=== PATIENT | female | born 1935 | race Caucasian/White ===

== ENCOUNTER → 2017-12-04 | Outpatient (CLI) | payer MEDICARE | END | disposition home or self-care (01) | LOC: SHCH 15:10 | PROVIDERS: ATTEND Internal Medicine Cardiovascular Disease | DX: I08.2 Rheumatic disorders of both aortic and tricuspid valves (principal); I27.20 Pulmonary hypertension, unspecified | CPT/HCPCS: 93306 ==

== ENCOUNTER → 2019-03-14 | Outpatient (CLI) | payer MEDICARE | END | disposition home or self-care (01) | LOC: OIH 08:55 | PROVIDERS: ATTEND Nurse Practitioner Adult Health | DX: J98.11 Atelectasis (principal); I51.7 Cardiomegaly; I70.0 Atherosclerosis of aorta; M47.814 Spondylosis without myelopathy or radiculopathy, thoracic region; M40.294 Other kyphosis, thoracic region | CPT/HCPCS: 71046 ==

== ENCOUNTER → 2019-07-24 | Outpatient (CLI) | payer MEDICARE | END | disposition home or self-care (01) | LOC: SHCH 12:29 | PROVIDERS: ATTEND Internal Medicine Cardiovascular Disease | DX: I08.8 Other rheumatic multiple valve diseases (principal); I27.20 Pulmonary hypertension, unspecified; Z98.890 Other specified postprocedural states | CPT/HCPCS: 93306 ==

== ENCOUNTER → 2020-02-25 | Outpatient (CLI) | payer MEDICARE | END | disposition home or self-care (01) | LOC: RAH 15:20 | PROVIDERS: ATTEND Nurse Practitioner Adult Health | DX: E83.52 Hypercalcemia (principal); N28.1 Cyst of kidney, acquired | CPT/HCPCS: 76536 ==

== ENCOUNTER → 2021-12-14 | Outpatient (CLI) | payer MEDICARE | END | disposition home or self-care (01) | LOC: SHCH 10:05 | PROVIDERS: ATTEND Internal Medicine Cardiovascular Disease | DX: I08.3 Combined rheumatic disorders of mitral, aortic and tricuspid valves (principal); Z95.2 Presence of prosthetic heart valve; I27.20 Pulmonary hypertension, unspecified | CPT/HCPCS: 93306 ==

== ENCOUNTER → 2022-09-19 | Outpatient (CLI) | payer MEDICARE | END | disposition home or self-care (01) | LOC: LAB 13:12 | PROVIDERS: ATTEND Internal Medicine Cardiovascular Disease | DX: I51.7 Cardiomegaly (principal) | CPT/HCPCS: 36415; 83880 ==

== ENCOUNTER → 2022-09-30 | Outpatient (CLI) | payer MEDICARE ==
[2022-09-30 12:43] LABS: CREATININE 1.4 mg/dL (0.5-1.5); POTASSIUM 3.4 mmol/L (3.5-5.1)
== END | disposition home or self-care (01) ==
LOC: LAB 08:06
PROVIDERS: ATTEND Internal Medicine Cardiovascular Disease
DX: R07.9 Chest pain, unspecified (principal)
CPT/HCPCS: 36415; 80048

== ENCOUNTER → 2022-10-03 | Outpatient (CLI) | payer MEDICARE ==
[2022-10-03 12:35] LABS: ALBUMIN 3.8 g/dL (3.5-5.0); BILIRUBIN,TOTAL 0.9 mg/dL (0.2-1.0); CREATININE 1.3 mg/dL (0.5-1.5); POTASSIUM 3.3 mmol/L (3.5-5.1); TOTAL PROTEIN, SERUM 7.4 g/dL (6.0-8.3)
== END | disposition home or self-care (01) ==
LOC: LAB 08:35
PROVIDERS: ATTEND Internal Medicine Cardiovascular Disease
DX: R07.9 Chest pain, unspecified (principal)
CPT/HCPCS: 36415; 80053

== ENCOUNTER → 2022-10-12 | Outpatient (CLI) | payer MEDICARE ==
[2022-10-12 12:06] LABS: CREATININE 1.1 mg/dL (0.5-1.5); POTASSIUM 3.4 mmol/L (3.5-5.1)
== END | disposition home or self-care (01) ==
LOC: LAB 08:26
PROVIDERS: ATTEND Internal Medicine Cardiovascular Disease
DX: I10 Essential (primary) hypertension (principal)
CPT/HCPCS: 36415; 80048

== ENCOUNTER → 2022-10-24 | Outpatient (CLI) | payer MEDICARE ==
[2022-10-24 12:17] LABS: CREATININE 1.2 mg/dL (0.5-1.5)
== END | disposition home or self-care (01) ==
LOC: LAB 08:24
PROVIDERS: ATTEND Internal Medicine Cardiovascular Disease
DX: I10 Essential (primary) hypertension (principal)
CPT/HCPCS: 36415; 80048

== ENCOUNTER 2022-12-27 22:42 | Inpatient (IN) | payer MEDICARE ==
[~2022-12-27] VITALS: Ht 157.5 cm; Wt 61.7 kg
[2022-12-27 23:40] VITALS: BP 125/44; PULSE 59; RESP 20; O2SAT 95
[2022-12-28] VITALS (7 sets, daily range): BP systolic 110–140; BP diastolic 39–58; PULSE 60–67; RESP 18–20; O2SAT 95–96
[2022-12-28] MEDS ORDERED: ACETAMINOPHEN 325 MG TAB PO PRN (01:00)
[2022-12-28] MEDS ORDERED: MORPHINE 2 MG SYG IV PRN (01:00)
[2022-12-28] MEDS ORDERED: ONDANSETRON 4MG INJ IV PRN (01:00)
[2022-12-28] MEDS: 0.9%NACL 1000ML 1,000 ML IV SCH (02:00)
[2022-12-28] MEDS: ACETAMINOPHEN 325 MG TAB PO PRN ×3 (02:09→20:39)
[2022-12-28] MEDS ORDERED: ASPI-1005 PO (03:10)
[2022-12-28] MEDS ORDERED: SPIR25TA6 PO (03:10)
[2022-12-28] MEDS ORDERED: LOSA100T59 PO (03:10)
[2022-12-28] MEDS ORDERED: LEVO88CA4 PO (03:10)
[2022-12-28] MEDS ORDERED: DIGO-44 PO (03:10)
[2022-12-28] MEDS ORDERED: WARF2.5T85 PO (03:10)
[2022-12-28] MEDS ORDERED: PRAV40TA3 PO (03:10)
[2022-12-28] MEDS ORDERED: CARV25TA77 PO (03:10)
[2022-12-28] MEDS ORDERED: METO5TAB7 PO (03:10)
[2022-12-28] MEDS ORDERED: ESTR0.5T2 PO (03:10)
[2022-12-28] MEDS ORDERED: FURO-151 PO (03:10)
[2022-12-28] MEDS ORDERED: ESZO1TAB10 PO (03:10)
[2022-12-28] MEDS ORDERED: CHOL200012 PO (03:10)
[2022-12-28 05:48] LABS: BASOPHILS # (AUTO) 0.05 K/uL (0.00-0.20); BASOPHILS % (AUTO) 0.6 % (0.0-5.0); EOSINOPHILS # (AUTO) 0.11 K/uL (0.00-0.70); EOSINOPHILS % (AUTO) 1.4 % (0.0-8.0); IMMATURE GRANULOCYTE ABSOLUTE 0.16 K/uL (0-1); LYMPHOCYTES % (AUTO) 12.7 % (21.0-51.0); MEAN CORPUSCULAR HEMOGLOBIN 30.9 pg (27.0-33.0); MEAN CORPUSCULAR VOLUME 90.9 fL (79-99); MONOCYTES # (AUTO) 1.2 K/uL (0.1-1.0); MONOCYTES % (AUTO) 15.5 % (3.0-13.0); NEUTROPHILS # (AUTO) 5.3 K/uL (1.8-7.7); NEUTROPHILS % (AUTO) 67.8 % (40.0-77.0); PLATELET COUNT (AUTO) 205 K/uL (130-400); RED CELL DISTRIBUTION WIDTH 16.1 % (11.0-15.5); WHITE BLOOD COUNT (AUTO) 7.9 K/uL (4.8-10.8)
[2022-12-28 06:13] LABS: BILIRUBIN,TOTAL 0.7 mg/dL (0.2-1.0); CREATININE 1.2 mg/dL (0.5-1.5); POTASSIUM 3.8 mmol/L (3.5-5.1); TOTAL PROTEIN, SERUM 5.6 g/dL (6.0-8.3)
[2022-12-28 06:18] LABS: B-TYPE NATRIURETIC PEPTIDE 76 pg/mL (0-100)
[2022-12-28] MEDS ORDERED: METOLAZONE 5 MG PO SCH (06:30)
[2022-12-28] MEDS: LEVOTHYROXINE 88 MCG TABLET PO SCH (06:34)
[2022-12-28] MEDS: FAMOTIDINE 20MG TAB PO SCH ×2 (08:17→20:37)
[2022-12-28] MEDS: DIGOXIN 125 MCG TABLET PO SCH ×2 (08:19→10:25)
[2022-12-28 08:42] LABS: INR 1.91 (0.85-1.15); PROTHROMBIN TIME 21.2 SEC (9.6-11.6)
[2022-12-28] MEDS: ESTRADIOL 0.5 MG TABLET PO SCH ×2 (09:00→09:14)
[2022-12-28] MEDS: SPIRONOLACTONE 25 MG TAB PO SCH ×2 (09:00→09:13)
[2022-12-28] MEDS ORDERED: CARVEDILOL 25 MG TABLET PO SCH (09:00)
[2022-12-28] MEDS ORDERED: NON-FORMULARY MEDICATION 1 EACH (Pravastatin Sodium 40 MG) PO SCH (09:00)
[2022-12-28] MEDS: CHOLECALCIFEROL 50 MCG PO SCH (09:00)
[2022-12-28] MEDS ORDERED: FUROSEMIDE 40 MG TABLET PO SCH (09:00)
[2022-12-28] MEDS ORDERED: METOLAZONE 2.5 MG TABLET PO SCH (09:00)
[2022-12-28] MEDS ORDERED: LOSARTAN 100 MG TABLET PO SCH (09:00)
[2022-12-28] MEDS: LOSARTAN 50 MG TABLET PO SCH (09:14)
[2022-12-28] MEDS: TORSEMIDE 20 MG TAB PO SCH ×2 (09:14→20:38)
[2022-12-28] MEDS: CARVEDILOL 12.5 MG TABLET PO SCH ×2 (09:14→20:38)
[2022-12-28] MEDS: ATORVASTATIN 10 MG TABLET PO SCH (20:37)
[2022-12-28] MEDS ORDERED: ESZOPICLONE 1 MG PO PRN (21:00)
[2022-12-29] VITALS (8 sets, daily range): BP systolic 124–137; BP diastolic 48–68; PULSE 60–70; RESP 16–20; O2SAT 96
[2022-12-29] MEDS: 0.9%NACL 1000ML 1,000 ML IV SCH (00:09)
[2022-12-29 04:45] LABS: HEMATOCRIT 22.2 % (36-48); MEAN CORPUSCULAR HEMOGLOBIN 30.1 pg (27.0-33.0); MEAN CORPUSCULAR HGB CONC 33.3 g/dL (32.0-36.0); MEAN CORPUSCULAR VOLUME 90.2 fL (79-99); RED BLOOD CELL COUNT(AUTO) 2.46 MIL/uL (4.00-5.50); RED CELL DISTRIBUTION WIDTH 17.2 % (11.0-15.5); WHITE BLOOD COUNT (AUTO) 7.4 K/uL (4.8-10.8)
[2022-12-29 04:59] LABS: INR 1.64 (0.85-1.15); PROTHROMBIN TIME 18.4 SEC (9.6-11.6)
[2022-12-29 05:15] LABS: ALBUMIN 2.9 g/dL (3.5-5.0); BILIRUBIN,TOTAL 0.8 mg/dL (0.2-1.0); CREATININE 1.1 mg/dL (0.5-1.5); POTASSIUM 3.7 mmol/L (3.5-5.1); TOTAL PROTEIN, SERUM 5.7 g/dL (6.0-8.3)
[2022-12-29] MEDS: LEVOTHYROXINE 88 MCG TABLET PO SCH (06:08)
[2022-12-29] MEDS: CHOLECALCIFEROL 50 MCG PO SCH (09:00)
[2022-12-29] MEDS: LOSARTAN 50 MG TABLET PO SCH (10:05)
[2022-12-29] MEDS: DIGOXIN 125 MCG TABLET PO SCH (10:05)
[2022-12-29] MEDS: FAMOTIDINE 20MG TAB PO SCH ×2 (10:05→19:49)
[2022-12-29] MEDS: TORSEMIDE 20 MG TAB PO SCH ×2 (10:06→19:49)
[2022-12-29] MEDS: CARVEDILOL 12.5 MG TABLET PO SCH ×2 (10:06→19:49)
[2022-12-29 14:18] LABS: HEMATOCRIT 22.7 % (36-48); MEAN CORPUSCULAR HEMOGLOBIN 30.5 pg (27.0-33.0); MEAN CORPUSCULAR VOLUME 92.3 fL (79-99); NUCLEATED RED BLOOD CELLS 0.3 % (0.0-0.19); RED BLOOD CELL COUNT(AUTO) 2.46 MIL/uL (4.00-5.50); RED CELL DISTRIBUTION WIDTH 17.2 % (11.0-15.5); WHITE BLOOD COUNT (AUTO) 7.9 K/uL (4.8-10.8)
[2022-12-29] MEDS: ACETAMINOPHEN 325 MG TAB PO PRN ×2 (14:33→19:48)
[2022-12-29] MEDS: ATORVASTATIN 10 MG TABLET PO SCH (19:48)
[2022-12-29] MEDS: APIXABAN 2.5 MG TABLET PO SCH (19:49)
[2022-12-30] VITALS (8 sets, daily range): BP systolic 130–143; BP diastolic 48–68; PULSE 60–64; RESP 18–20; O2SAT 94–97
[2022-12-30] MEDS: LEVOTHYROXINE 88 MCG TABLET PO SCH (04:44)
[2022-12-30] MEDS: ACETAMINOPHEN 325 MG TAB PO PRN ×2 (04:45→20:26)
[2022-12-30 05:09] LABS: MEAN CORPUSCULAR HEMOGLOBIN 29.7 pg (27.0-33.0); MEAN CORPUSCULAR HGB CONC 31.7 g/dL (32.0-36.0); MEAN CORPUSCULAR VOLUME 93.5 fL (79-99); NUCLEATED RED BLOOD CELLS 0.5 % (0.0-0.19); RED BLOOD CELL COUNT(AUTO) 2.46 MIL/uL (4.00-5.50); RED CELL DISTRIBUTION WIDTH 17.4 % (11.0-15.5); WHITE BLOOD COUNT (AUTO) 8.1 K/uL (4.8-10.8)
[2022-12-30 05:25] LABS: INR 1.35 (0.85-1.15); PROTHROMBIN TIME 15.4 SEC (9.6-11.6)
[2022-12-30 05:46] LABS: ALBUMIN 3.1 g/dL (3.5-5.0); BILIRUBIN,TOTAL 1.2 mg/dL (0.2-1.0); CREATININE 1.3 mg/dL (0.5-1.5); MAGNESIUM 2.1 mg/dL (1.80-2.40); TOTAL PROTEIN, SERUM 6.4 g/dL (6.0-8.3)
[2022-12-30] MEDS: APIXABAN 2.5 MG TABLET PO SCH (08:34)
[2022-12-30] MEDS: ESTRADIOL 0.5 MG TABLET PO SCH (08:34)
[2022-12-30] MEDS: TORSEMIDE 20 MG TAB PO SCH ×2 (08:34→20:27)
[2022-12-30] MEDS: SPIRONOLACTONE 25 MG TAB PO SCH (08:34)
[2022-12-30] MEDS: FAMOTIDINE 20MG TAB PO SCH ×2 (08:34→20:27)
[2022-12-30] MEDS: DIGOXIN 125 MCG TABLET PO SCH (08:35)
[2022-12-30] MEDS: LOSARTAN 50 MG TABLET PO SCH (08:35)
[2022-12-30] MEDS: CARVEDILOL 12.5 MG TABLET PO SCH ×2 (08:36→20:28)
[2022-12-30] MEDS: CHOLECALCIFEROL 50 MCG PO SCH (08:37)
[2022-12-30] MEDS ORDERED: LACTULOSE 20 GM/30 ML UDCUP PO PRN (09:00)
[2022-12-30] MEDS: BALSAM PERU/CASTOR OIL 60 GM TUBE TP SCH ×2 (09:00→21:00)
[2022-12-30] MEDS ORDERED: BISACODYL 5 MG TABLET.DR PO PRN (09:00)
[2022-12-30] MEDS: MAGNESIUM HYDROXIDE 30 ML/UDCUP PO SCH (10:10)
[2022-12-30 11:33] LABS: % IRON SATURATION 14.5 % (22-44)
[2022-12-30] MEDS: HEPARIN 25,000 UNITS/250ML D5W 250 ML IV SCH (16:50)
[2022-12-30] MEDS: ATORVASTATIN 10 MG TABLET PO SCH (20:27)
[2022-12-30] MEDS ORDERED: IRON SUCROSE COMPLEX 300 MG in 0.9% NACL 250ML 250 ML IV ONE (21:00)
[2022-12-30] MEDS ORDERED: WARFARIN SODIUM 5 MG TAB PO SCH (22:00)
[2022-12-31] VITALS (9 sets, daily range): BP systolic 114–143; BP diastolic 40–74; PULSE 60–75; RESP 14–18; O2SAT 95–97
[2022-12-31] MEDS: ACETAMINOPHEN 325 MG TAB PO PRN ×2 (01:22→20:35)
[2022-12-31 05:15] LABS: HEMATOCRIT 22.4 % (36-48); MEAN CORPUSCULAR HEMOGLOBIN 30.5 pg (27.0-33.0); MEAN CORPUSCULAR HGB CONC 32.1 g/dL (32.0-36.0); MEAN CORPUSCULAR VOLUME 94.9 fL (79-99); NUCLEATED RED BLOOD CELLS 0.4 % (0.0-0.19); RED BLOOD CELL COUNT(AUTO) 2.36 MIL/uL (4.00-5.50); RED CELL DISTRIBUTION WIDTH 17.9 % (11.0-15.5); WHITE BLOOD COUNT (AUTO) 8.4 K/uL (4.8-10.8)
[2022-12-31 05:26] LABS: INR 1.24 (0.85-1.15); PROTHROMBIN TIME 14.2 SEC (9.6-11.6)
[2022-12-31 05:34] LABS: ALBUMIN 3.1 g/dL (3.5-5.0); BILIRUBIN,TOTAL 1.6 mg/dL (0.2-1.0); CREATININE 1.4 mg/dL (0.5-1.5); MAGNESIUM 2.2 mg/dL (1.80-2.40); POTASSIUM 3.7 mmol/L (3.5-5.1); TOTAL PROTEIN, SERUM 6.5 g/dL (6.0-8.3)
[2022-12-31 05:45] LABS: PARTIAL THROMBOPLASTIN TIME > 139.0 SEC (26.3-35.5)
[2022-12-31] MEDS: LEVOTHYROXINE 88 MCG TABLET PO SCH (06:39)
[2022-12-31] MEDS ORDERED: ENOXAPARIN SODIUM 60 MG/0.6 ML SQ SCH (09:00)
[2022-12-31] MEDS: CHOLECALCIFEROL 50 MCG PO SCH (09:00)
[2022-12-31] MEDS: TORSEMIDE 20 MG TAB PO SCH ×2 (09:25→20:34)
[2022-12-31] MEDS: DIGOXIN 125 MCG TABLET PO SCH (09:25)
[2022-12-31] MEDS: LOSARTAN 50 MG TABLET PO SCH (09:26)
[2022-12-31] MEDS: FAMOTIDINE 20MG TAB PO SCH ×2 (09:26→20:33)
[2022-12-31] MEDS: BALSAM PERU/CASTOR OIL 60 GM TUBE TP SCH ×2 (09:26→20:35)
[2022-12-31] MEDS: MAGNESIUM HYDROXIDE 30 ML/UDCUP PO SCH (09:26)
[2022-12-31] MEDS: CARVEDILOL 12.5 MG TABLET PO SCH ×2 (09:26→20:34)
[2022-12-31] MEDS: ATORVASTATIN 10 MG TABLET PO SCH (20:34)
[2023-01-01] VITALS (7 sets, daily range): BP systolic 123–131; BP diastolic 50–66; PULSE 57–74; RESP 16–20; O2SAT 94
[2023-01-01 03:46] LABS: HEMATOCRIT 22.5 % (36-48); MEAN CORPUSCULAR HEMOGLOBIN 30.5 pg (27.0-33.0); MEAN CORPUSCULAR VOLUME 95.3 fL (79-99); NUCLEATED RED BLOOD CELLS 0.4 % (0.0-0.19); RED BLOOD CELL COUNT(AUTO) 2.36 MIL/uL (4.00-5.50); RED CELL DISTRIBUTION WIDTH 18.3 % (11.0-15.5); WHITE BLOOD COUNT (AUTO) 9.4 K/uL (4.8-10.8)
[2023-01-01 04:03] LABS: INR 1.15 (0.85-1.15); PROTHROMBIN TIME 13.2 SEC (9.6-11.6)
[2023-01-01 04:04] LABS: PARTIAL THROMBOPLASTIN TIME 60.9 SEC (26.3-35.5)
[2023-01-01 04:06] LABS: ALBUMIN 3.1 g/dL (3.5-5.0); CREATININE 1.3 mg/dL (0.5-1.5); MAGNESIUM 2.1 mg/dL (1.80-2.40); POTASSIUM 3.7 mmol/L (3.5-5.1); TOTAL PROTEIN, SERUM 6.5 g/dL (6.0-8.3)
[2023-01-01] MEDS: LEVOTHYROXINE 88 MCG TABLET PO SCH (05:35)
[2023-01-01] MEDS: HEPARIN 25,000 UNITS/250ML D5W 250 ML IV SCH (05:36)
[2023-01-01] MEDS: CHOLECALCIFEROL 50 MCG PO SCH (09:00)
[2023-01-01] MEDS: LOSARTAN 50 MG TABLET PO SCH (09:14)
[2023-01-01] MEDS: TORSEMIDE 20 MG TAB PO SCH ×2 (09:14→21:34)
[2023-01-01] MEDS: CARVEDILOL 12.5 MG TABLET PO SCH ×2 (09:14→21:34)
[2023-01-01] MEDS: DIGOXIN 125 MCG TABLET PO SCH (09:14)
[2023-01-01] MEDS: FAMOTIDINE 20MG TAB PO SCH ×2 (09:14→21:34)
[2023-01-01] MEDS: ACETAMINOPHEN 325 MG TAB PO PRN ×2 (09:27→21:52)
[2023-01-01] MEDS: BALSAM PERU/CASTOR OIL 60 GM TUBE TP SCH ×2 (14:45→22:30)
[2023-01-01] MEDS ORDERED: PEG 3350/NA SULF,BICARB,CL/KCL 4000 ML SOLN PO ONE (17:00)
[2023-01-01] MEDS ORDERED: WARFARIN SODIUM 2.5 MG TAB PO SCH (18:00)
[2023-01-01] MEDS ORDERED: IRON SUCROSE COMPLEX 100 MG/5 ML VIAL IVP ONE (21:00)
[2023-01-01] MEDS: ATORVASTATIN 10 MG TABLET PO SCH (21:34)
[2023-01-01] MEDS ORDERED: IRON SUCROSE COMPLEX 200 MG in 0.9% NACL 250ML 250 ML IV ONE (22:00)
[2023-01-02] VITALS (26 sets, daily range): BP systolic 20–142; BP diastolic 35–69; PULSE 60–69; RESP 14–22; O2SAT 95
[2023-01-02 03:56] LABS: HEMATOCRIT 24.1 % (36-48); MEAN CORPUSCULAR HEMOGLOBIN 30.8 pg (27.0-33.0); MEAN CORPUSCULAR VOLUME 96.4 fL (79-99); NUCLEATED RED BLOOD CELLS 0.4 % (0.0-0.19); PLATELET COUNT (AUTO) 231 K/uL (130-400); RED CELL DISTRIBUTION WIDTH 18.7 % (11.0-15.5)
[2023-01-02 04:16] LABS: ALBUMIN 3.5 g/dL (3.5-5.0); BILIRUBIN,TOTAL 2.8 mg/dL (0.2-1.0); CREATININE 1.3 mg/dL (0.5-1.5); MAGNESIUM 2.1 mg/dL (1.80-2.40); TOTAL PROTEIN, SERUM 7.1 g/dL (6.0-8.3)
[2023-01-02 04:33] LABS: INR 1.12 (0.85-1.15); PARTIAL THROMBOPLASTIN TIME 33.2 SEC (26.3-35.5)
[2023-01-02] MEDS: LACTATED RINGERS 1000ML 1,000 ML IV SCH ×2 (06:04→15:44)
[2023-01-02] MEDS: LEVOTHYROXINE 88 MCG TABLET PO SCH (06:30)
[2023-01-02] MEDS ORDERED: SIMETHICONE 40 MG/0.6 ML ML ONE (07:32)
[2023-01-02] MEDS ORDERED: PROPOFOL 10 MG/ML 20ML VIAL IV ONE (07:43)
[2023-01-02] MEDS ORDERED: LIDOCAINE HCL 400MG/20ML VIAL ONE (07:43)
[2023-01-02] MEDS ORDERED: PHENYLEPHRINE HCL 10 MG/ML 1ML VIAL IV ONE (08:06)
[2023-01-02] MEDS: CHOLECALCIFEROL 50 MCG PO SCH (09:00)
[2023-01-02] MEDS ORDERED: WARFARIN SODIUM 5 MG TAB PO ONE (11:00)
[2023-01-02] MEDS: ESTRADIOL 0.5 MG TABLET PO SCH (12:03)
[2023-01-02] MEDS: FAMOTIDINE 20MG TAB PO SCH ×2 (12:03→20:58)
[2023-01-02] MEDS: LOSARTAN 50 MG TABLET PO SCH (12:03)
[2023-01-02] MEDS: SPIRONOLACTONE 25 MG TAB PO SCH (12:04)
[2023-01-02] MEDS: DIGOXIN 125 MCG TABLET PO SCH (12:04)
[2023-01-02] MEDS: TORSEMIDE 20 MG TAB PO SCH ×2 (12:05→20:59)
[2023-01-02] MEDS: CARVEDILOL 12.5 MG TABLET PO SCH ×2 (12:06→20:59)
[2023-01-02] MEDS: BALSAM PERU/CASTOR OIL 60 GM TUBE TP SCH ×2 (12:08→21:06)
[2023-01-02] MEDS ORDERED: HEPARIN 5,000 UNIT VIAL ONE (13:16)
[2023-01-02] MEDS ORDERED: HEPARIN 5,000 UNIT VIAL IV PRN (16:30)
[2023-01-02] MEDS ORDERED: IRON SUCROSE COMPLEX 300 MG in 0.9% NACL 250ML 250 ML IV ONE (18:00)
[2023-01-02] MEDS ORDERED: HONEY 1 APPL/ML TUBE TP SCH (18:00)
[2023-01-02] MEDS: ATORVASTATIN 10 MG TABLET PO SCH (20:59)
[2023-01-02] MEDS: ACETAMINOPHEN 325 MG TAB PO PRN (21:03)
[2023-01-03] MEDS: LACTATED RINGERS 1000ML 1,000 ML IV SCH (02:00)
[2023-01-03 03:53] VITALS: BP 140/53; PULSE 61; RESP 20
[2023-01-03 04:45] LABS: CREATININE 1.4 mg/dL (0.5-1.5); MAGNESIUM 1.9 mg/dL (1.80-2.40); POTASSIUM 3.9 mmol/L (3.5-5.1)
[2023-01-03 05:12] LABS: BASOPHILS # (AUTO) 0.06 K/uL (0.00-0.20); BASOPHILS % (AUTO) 0.6 % (0.0-5.0); EOSINOPHILS # (AUTO) 0.13 K/uL (0.00-0.70); EOSINOPHILS % (AUTO) 1.3 % (0.0-8.0); IMMATURE GRANULOCYTE ABSOLUTE 0.27 K/uL (0-1); LYMPHOCYTES # (AUTO) 0.8 K/uL (1.0-4.8); LYMPHOCYTES % (AUTO) 8.1 % (21.0-51.0); MEAN CORPUSCULAR HEMOGLOBIN 30.7 pg (27.0-33.0); MEAN CORPUSCULAR HGB CONC 31.7 g/dL (32.0-36.0); MEAN CORPUSCULAR VOLUME 96.6 fL (79-99); MONOCYTES # (AUTO) 1.5 K/uL (0.1-1.0); MONOCYTES % (AUTO) 14.9 % (3.0-13.0); NEUTROPHILS # (AUTO) 7.4 K/uL (1.8-7.7); NEUTROPHILS % (AUTO) 72.5 % (40.0-77.0); NUCLEATED RED BLOOD CELLS 0.9 % (0.0-0.19); PLATELET COUNT (AUTO) 222 K/uL (130-400); RED BLOOD CELL COUNT(AUTO) 2.38 MIL/uL (4.00-5.50); RED CELL DISTRIBUTION WIDTH 19.8 % (11.0-15.5); WHITE BLOOD COUNT (AUTO) 10.2 K/uL (4.8-10.8)
[2023-01-03] MEDS: LEVOTHYROXINE 88 MCG TABLET PO SCH (06:07)
[2023-01-03] MEDS: HEPARIN 25,000 UNITS/250ML D5W 250 ML IV SCH (06:16)
[2023-01-03 07:24] LABS: INR 1.19 (0.85-1.15); PROTHROMBIN TIME 13.6 SEC (9.6-11.6)
[2023-01-03] MEDS ORDERED: ENOXAPARIN SODIUM 60 MG/0.6 ML SQ SCH (07:30)
[2023-01-03 07:40] VITALS: BP 140/59; PULSE 60; RESP 19
[2023-01-03 08:00] VITALS: O2SAT 97
[2023-01-03] MEDS: CHOLECALCIFEROL 50 MCG PO SCH (09:00)
[2023-01-03] MEDS: TORSEMIDE 20 MG TAB PO SCH (09:21)
[2023-01-03] MEDS: LOSARTAN 50 MG TABLET PO SCH (09:21)
[2023-01-03] MEDS: DIGOXIN 125 MCG TABLET PO SCH (09:21)
[2023-01-03] MEDS: FAMOTIDINE 20MG TAB PO SCH (09:22)
[2023-01-03] MEDS: CARVEDILOL 12.5 MG TABLET PO SCH (09:22)
[2023-01-03] MEDS: BALSAM PERU/CASTOR OIL 60 GM TUBE TP SCH (09:31)
[2023-01-03 10:21] VITALS: PULSE 60
[2023-01-03 11:50] VITALS: BP 139/50; PULSE 65; RESP 18
[2023-01-03] MEDS ORDERED: WARFARIN SODIUM 5 MG TAB PO SCH (16:00)
[2023-01-04] MEDS ORDERED: FERROUS SULFATE 325 MG TABLET.DR PO SCH (09:00)
== END 2023-01-03 13:27 | DRG 604 ==
LOC: 2AH 23:38
PROVIDERS: ADMIT Hospitalist; ATTEND Hospitalist
PROC: 30233N1 Transfusion of Nonautologous Red Blood Cells into Peripheral Vein, Percutaneous Approach (ICD-10-PCS; 2022-12-28)
PROC: 0DB98ZX Excision of Duodenum, Via Natural or Artificial Opening Endoscopic, Diagnostic (ICD-10-PCS; principal; 2023-01-02)
PROC: 0DB68ZX Excision of Stomach, Via Natural or Artificial Opening Endoscopic, Diagnostic (ICD-10-PCS; 2023-01-02)
PROC: 0DJD8ZZ Inspection of Lower Intestinal Tract, Via Natural or Artificial Opening Endoscopic (ICD-10-PCS; 2023-01-02)
DX: S30.0XXA Contusion of lower back and pelvis, initial encounter (principal); I50.33 Acute on chronic diastolic (congestive) heart failure; I13.0 Hypertensive heart and chronic kidney disease with heart failure and stage 1 through stage 4 chronic kidney disease, or unspecified chronic kidney disease; E87.1 Hypo-osmolality and hyponatremia; I48.20 Chronic atrial fibrillation, unspecified; N17.9 Acute kidney failure, unspecified; I27.20 Pulmonary hypertension, unspecified; E03.9 Hypothyroidism, unspecified; N18.32 Chronic kidney disease, stage 3b; D50.0 Iron deficiency anemia secondary to blood loss (chronic); S92.911A Unspecified fracture of right toe(s), initial encounter for closed fracture; E78.5 Hyperlipidemia, unspecified; I25.10 Atherosclerotic heart disease of native coronary artery without angina pectoris; I45.9 Conduction disorder, unspecified; K40.90 Unilateral inguinal hernia, without obstruction or gangrene, not specified as recurrent; K57.90 Diverticulosis of intestine, part unspecified, without perforation or abscess without bleeding; W18.30XA Fall on same level, unspecified, initial encounter; K59.00 Constipation, unspecified; S30.820A Blister (nonthermal) of lower back and pelvis, initial encounter; Z79.01 Long term (current) use of anticoagulants; Z79.82 Long term (current) use of aspirin; Z79.899 Other long term (current) drug therapy; Y93.89 Activity, other specified; Y92.89 Other specified places as the place of occurrence of the external cause; Y99.8 Other external cause status; Z86.73 Personal history of transient ischemic attack (TIA), and cerebral infarction without residual deficits; Z90.710 Acquired absence of both cervix and uterus; Z95.0 Presence of cardiac pacemaker
CPT/HCPCS: 36415; 43239; 45378; 70450; 71045; 80048; 80053; 80162; 82270; 82550; 83540; 83550; 83735; 83880; 84100; 84484; 85025; 85027; 85610; 85730; 86850; 86900; 86901; 86905; 86922; 88305; 88312; 93306; 93356; G0378; J1644; J1650; J1756; J2270; J2371; J2704; J3490; J7050; P9016; A4215; A4216; A4222; A4223; A4620; A7002

== ENCOUNTER → 2023-05-01 | Outpatient (CLI) | payer MEDICARE ==
[~2023-05-01] MED LIST: ASPI-1005 PO; CARV25TA77 PO; CHOL200012 PO; DIGO-44 PO; ESTR0.5T2 PO; ESZO1TAB10 PO; FURO-151 PO; LEVO88CA4 PO; LOSA100T59 PO; METO5TAB7 PO; PRAV40TA3 PO; SPIR25TA6 PO; WARF2.5T85 PO
== END | disposition home or self-care (01) ==
LOC: RAH 10:00
PROVIDERS: ATTEND Nurse Practitioner Adult Health
DX: K80.20 Calculus of gallbladder without cholecystitis without obstruction (principal); R94.5 Abnormal results of liver function studies; R16.0 Hepatomegaly, not elsewhere classified
CPT/HCPCS: 76700